=== PATIENT | female | born 1955 ===

== ENCOUNTER 2023-05-22 19:17 | Outpatient (REF) | payer MEDICARE, SELFPAY | END 2023-05-22 19:18 | disposition home or self-care (01) | LOC: LAB 19:17 | PROVIDERS: Visit Provider Nurse Practitioner Primary Care | DX: R30.0 Dysuria (principal) | CPT/HCPCS: 87086; 87186 ==

== ENCOUNTER 2023-06-18 12:00 | Outpatient (REF) | payer MEDICARE, SELFPAY ==
[2023-06-19 14:43] LABS: Bilirubin Urine NEGATIVE (NEGATIVE); Blood Urine TRACE-I (NEGATIVE); Clarity Urine CLEAR (CLEAR); Color Urine LT. YELLOW (YELLOW); Glucose Urine UA NEGATIVE (NEGATIVE); Ketones Urine NEGATIVE (NEGATIVE); Leukocyte Esterase Urine SMALL (NEGATIVE); Nitrite Urine POSITIVE (NEGATIVE); Protein Urine NEGATIVE (NEG/TRACE)
== END 2023-06-18 12:01 | disposition home or self-care (01) ==
LOC: LAB 12:00
PROVIDERS: Visit Provider Nurse Practitioner Primary Care
DX: R30.0 Dysuria (principal)
CPT/HCPCS: 81003; 87086; 87150; 87186